=== PATIENT | male | born 1980 | race Caucasian/White ===

== ENCOUNTER 2017-01-19 19:10 | Emergency (ER) | payer OTHER ==
[~2017-01-19] VITALS: Ht 182.9 cm; Wt 100.8 kg
[2017-01-19 19:16] VITALS: BP 158/81; PULSE 69; TEMP 36.6; O2SAT 97; Ht 182.9 cm; Wt 100.8 kg
[2017-01-19] MEDS ORDERED: MULT-600 PO (19:32)
[2017-01-19] MEDS ORDERED: GLUCTAB7 PO (19:32)
[2017-01-19] MEDS ORDERED: OMEG10007 PO (19:32)
--- NOTE | 2017-01-19 20:08 | DIAGNOSTIC IMAGING REPORT ---
RIGHT WRIST W/NAVICULAR MIN 3 VIEWS CLINICAL HISTORY: Right wrist pain following injury. COMPARISON: None FINDINGS: Alignment of the right wrist is anatomic. No acute fracture is identified. Scaphoid is intact. IMPRESSION: No acute fracture or dislocation of the right wrist. Electronically signed by: Abel Dominguez M.D. 01/19/2017 8:06 PM Dictated Date/Time: 01/19/2017 8:04 PM
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
== END 2017-01-19 20:15 | disposition home or self-care (01) ==
LOC: C.EDB 19:13 → C.EDD 20:15
DX: S69.91XA Unspecified injury of right wrist, hand and finger(s), initial encounter (principal); W50.0XXA Accidental hit or strike by another person, initial encounter; Y99.0 Civilian activity done for income or pay; T14.8 Other injury of unspecified body region